=== PATIENT | male | born 1940 | race African-American/Black ===

== ENCOUNTER 2021-08-17 16:19 | Inpatient (IN) | payer MEDICARE ==
[~2021-08-17] VITALS: Ht 172.7 cm; Wt 103.4 kg
[2021-08-17] MEDS ORDERED: ALBUTEROL (0.083%) 2.5MG/3ML NEB HHN STA (16:47)
[2021-08-17] MEDS ORDERED: IPRATROPIUM BROMIDE (0.02%) 0.5MG/2.5ML NEB HHN STA (16:47)
[2021-08-17] MEDS ORDERED: FUROSEMIDE 20MG/2ML VIAL IVP ONE (17:00)
[2021-08-17 17:36] LABS: BASOPHILS % 0.5 % (0.0-2.0); EOSINOPHILS % 0.5 % (0.0-5.0); HEMATOCRIT. 36.1 % (42.0-52.0); HEMOGLOBIN. 12.2 g/dL (14.0-18.0); MEAN CORPUSCULAR HEMOGLOBIN 33.1 pg (28.0-32.0); MEAN CORPUSCULAR VOLUME 98.2 fL (80.0-94.0); MEAN PLATELET VOLUME 9.5 fl (7.4-10.4); PLATELET 280 x1000/uL (130-400); RED BLOOD CELL COUNT 3.68 mill/uL (4.7-6.1); RED CELL DISTRIBUTION WIDTH 14.1 % (11.6-14.6)
[2021-08-17 18:29] LABS: CHLORIDE 104 mEq/L (98-107)
[2021-08-17] MEDS ORDERED: DOCUSATE SODIUM 100MG CAPSULE PO PRN (19:00)
[2021-08-17] MEDS ORDERED: GUAIFENESIN 200MG/10ML SUGAR FREE UDC PO PRN (19:00)
[2021-08-17] MEDS ORDERED: ACETAMINOPHEN 325MG TABLET PO PRN ×2 (19:00)
[2021-08-17] MEDS ORDERED: ONDANSETRON HCL 4MG/2ML INJ IV PRN (19:00)
[2021-08-17] MEDS ORDERED: NA PHOS,M-B/NA PHOS,DI-BA ENEMA 118ML PR PRN (19:00)
[2021-08-17] MEDS ORDERED: IPRATROPIUM/ALBUTEROL 0.5-3(2.5)MG/3ML NEB NEB PRN (19:00)
[2021-08-17] MEDS ORDERED: MAGNESIUM/ALUMINUM HYDROXIDE/SIMETHICONE 30ML UDC PO PRN (19:00)
[2021-08-17] MEDS ORDERED: CLONIDINE 0.1MG TABLET PO PRN (19:00)
[2021-08-17] MEDS ORDERED: TRAMADOL 50MG TABLET PO PRN (19:00)
[2021-08-17] MEDS ORDERED: NALOXONE HCL 0.4MG/ML VIAL IV PRN (19:30)
[2021-08-17] MEDS ORDERED: NITROGLYCERIN 0.4MG TABLET SL SL PRN (19:30)
[2021-08-17 20:20] LABS: FOLIC ACID (FOLATE) SERUM 4.7 ng/mL (>5.38)
[2021-08-17] MEDS: ENOXAPARIN 30MG/0.3ML SYR SUBCUT SCH (20:36)
[2021-08-17] MEDS: ASCORBIC ACID 500 MG TABLET PO SCH (20:36)
[2021-08-17] MEDS: FUROSEMIDE 40MG/4ML VIAL IVP SCH (20:36)
[2021-08-17] MEDS: SPIRONOLACTONE 25MG TABLET PO SCH (20:36)
[2021-08-17] MEDS: FAMOTIDINE 20MG TABLET PO SCH (20:36)
[2021-08-17] MEDS ORDERED: LOSA100T32 PO (22:43)
[2021-08-17] MEDS ORDERED: AMLO10TA80 PO (22:43)
[2021-08-18] VITALS (7 sets, daily range): BP systolic 125–150; BP diastolic 78–98
[2021-08-18] MEDS: CARVEDILOL 3.125 MG TABLET PO SCH ×2 (05:53→18:19)
[2021-08-18 07:02] LABS: CHLORIDE 104 mEq/L (98-107)
[2021-08-18 07:03] LABS: BASOPHILS % 0.5 % (0.0-2.0); HEMOGLOBIN. 11.9 g/dL (14.0-18.0); LYMPHOCYTES % 15.5 % (20.0-50.0); MEAN CORPUSCULAR HEMOGLOBIN 32.7 pg (28.0-32.0); MEAN CORPUSCULAR VOLUME 99.4 fL (80.0-94.0); MEAN PLATELET VOLUME 9.6 fl (7.4-10.4); MONOCYTES % 8.5 % (2.0-8.0); NEUTROPHILS % 74.5 % (40.0-76.0); PLATELET 297 x1000/uL (130-400); RED BLOOD CELL COUNT 3.62 mill/uL (4.7-6.1); RED CELL DISTRIBUTION WIDTH 14.2 % (11.6-14.6)
[2021-08-18 07:20] LABS: CREATINE KINASE 116 IU/L (39-308)
[2021-08-18 07:25] LABS: PHOSPHORUS 3.9 mg/dL (2.5-4.9)
[2021-08-18] MEDS: ASCORBIC ACID 500 MG TABLET PO SCH ×3 (09:59→21:12)
[2021-08-18] MEDS: CHOLECALCIFEROL (D3) 1000 UNIT TABLET PO SCH (09:59)
[2021-08-18] MEDS: FAMOTIDINE 20MG TABLET PO SCH ×3 (09:59→21:11)
[2021-08-18] MEDS: SPIRONOLACTONE 25MG TABLET PO SCH ×3 (09:59→21:11)
[2021-08-18] MEDS: ASPIRIN 325MG EC TABLET PO SCH (09:59)
[2021-08-18] MEDS: ZINC SULFATE 220 MG ( 50 ) CAPSULE PO SCH (09:59)
[2021-08-18] MEDS: FUROSEMIDE 40MG/4ML VIAL IVP SCH ×2 (10:01→20:44)
[2021-08-18] MEDS: ENOXAPARIN 30MG/0.3ML SYR SUBCUT SCH ×2 (10:01→20:53)
[2021-08-19] VITALS: BP 159/99
[2021-08-19] MEDS: ZOLPIDEM TARTRATE 5MG TABLET PO PRN (01:57)
[2021-08-19 04:00] VITALS: BP 125/83
[2021-08-19] MEDS ORDERED: HALOPERIDOL LACTATE 5MG/ML VIAL IM SCH (06:00)
[2021-08-19] MEDS: CARVEDILOL 3.125 MG TABLET PO SCH ×2 (06:00→17:28)
[2021-08-19 08:00] VITALS: BP 173/84
[2021-08-19] MEDS: ASPIRIN 325MG EC TABLET PO SCH (09:48)
[2021-08-19] MEDS: FUROSEMIDE 40MG/4ML VIAL IVP SCH ×2 (09:48→22:37)
[2021-08-19] MEDS: ASCORBIC ACID 500 MG TABLET PO SCH ×2 (09:48→22:38)
[2021-08-19] MEDS: ENOXAPARIN 30MG/0.3ML SYR SUBCUT SCH ×2 (09:48→22:38)
[2021-08-19] MEDS: SPIRONOLACTONE 25MG TABLET PO SCH ×2 (09:49→22:37)
[2021-08-19] MEDS: ZINC SULFATE 220 MG ( 50 ) CAPSULE PO SCH (09:49)
[2021-08-19] MEDS: FAMOTIDINE 20MG TABLET PO SCH ×2 (09:49→22:37)
[2021-08-19] MEDS: CHOLECALCIFEROL (D3) 1000 UNIT TABLET PO SCH (09:49)
[2021-08-19 12:00] VITALS: BP 154/88
[2021-08-19 16:00] VITALS: BP 129/67
[2021-08-19 20:00] VITALS: BP 141/66
[2021-08-20] VITALS: BP 133/47
[2021-08-20 04:00] VITALS: BP 158/78
[2021-08-20] MEDS: CARVEDILOL 3.125 MG TABLET PO SCH ×2 (06:40→18:22)
[2021-08-20 08:00] VITALS: BP 136/62
[2021-08-20] MEDS: CHOLECALCIFEROL (D3) 1000 UNIT TABLET PO SCH (09:13)
[2021-08-20] MEDS: ASCORBIC ACID 500 MG TABLET PO SCH ×2 (09:14→21:39)
[2021-08-20] MEDS: ASPIRIN 325MG EC TABLET PO SCH (09:14)
[2021-08-20] MEDS: FAMOTIDINE 20MG TABLET PO SCH ×2 (09:14→21:39)
[2021-08-20] MEDS: SPIRONOLACTONE 25MG TABLET PO SCH ×2 (09:15→21:39)
[2021-08-20] MEDS: ENOXAPARIN 30MG/0.3ML SYR SUBCUT SCH ×2 (09:15→21:40)
[2021-08-20] MEDS: ZINC SULFATE 220 MG ( 50 ) CAPSULE PO SCH (09:17)
[2021-08-20 09:34] LABS: CLARITY URINE CLEAR (CLEAR); COLOR URINE YELLOW (YELLOW); KETONES URINE NEGATIVE (NEGATIVE); LEUKOCYTE ESTERASE URINE 1+ (NEGATIVE); NITRITE URINE POSITIVE (NEGATIVE); OCCULT BLOOD URINE TRACE (NEGATIVE); PH URINE 5.5 (4.5-8.0); PROTEIN URINE NEGATIVE (NEGATIVE)
[2021-08-20 12:00] VITALS: BP 140/68
[2021-08-20 16:00] VITALS: BP 144/82
[2021-08-20] MEDS: FUROSEMIDE 40MG/4ML VIAL IVP SCH ×2 (18:22→21:39)
[2021-08-20 20:00] VITALS: BP 141/94
[2021-08-21] VITALS: BP 148/79
[2021-08-21] MEDS: ZOLPIDEM TARTRATE 5MG TABLET PO PRN (02:23)
[2021-08-21 04:00] VITALS: BP 102/68
[2021-08-21] MEDS: CARVEDILOL 3.125 MG TABLET PO SCH ×2 (05:16→18:08)
[2021-08-21 08:00] VITALS: BP 153/76
[2021-08-21] MEDS: ENOXAPARIN 30MG/0.3ML SYR SUBCUT SCH ×2 (08:47→20:53)
[2021-08-21] MEDS: CHOLECALCIFEROL (D3) 1000 UNIT TABLET PO SCH (08:48)
[2021-08-21] MEDS: ASPIRIN 325MG EC TABLET PO SCH (08:48)
[2021-08-21] MEDS: FAMOTIDINE 20MG TABLET PO SCH ×2 (08:48→20:54)
[2021-08-21] MEDS: FUROSEMIDE 40MG/4ML VIAL IVP SCH (08:48)
[2021-08-21] MEDS: ASCORBIC ACID 500 MG TABLET PO SCH ×2 (08:48→20:54)
[2021-08-21] MEDS: SPIRONOLACTONE 25MG TABLET PO SCH ×2 (08:48→20:54)
[2021-08-21] MEDS: ZINC SULFATE 220 MG ( 50 ) CAPSULE PO SCH (08:49)
[2021-08-21 12:00] VITALS: BP 134/93
[2021-08-21] MEDS: MEROPENEM 1,000 MG in SODIUM CHLORIDE 0.9% 100 ML IV SCH (15:17)
[2021-08-21 16:00] VITALS: BP 127/69
[2021-08-21 20:00] VITALS: BP 126/83
[2021-08-22] VITALS: BP 138/68
[2021-08-22] MEDS: MEROPENEM 1,000 MG in SODIUM CHLORIDE 0.9% 100 ML IV SCH ×3 (02:09→17:17)
[2021-08-22] MEDS: FUROSEMIDE 40MG/4ML VIAL IVP SCH ×2 (02:09→08:58)
[2021-08-22 04:00] VITALS: BP 156/60
[2021-08-22] MEDS: CARVEDILOL 3.125 MG TABLET PO SCH ×2 (05:29→17:17)
[2021-08-22 08:00] VITALS: BP 141/71
[2021-08-22] MEDS: SPIRONOLACTONE 25MG TABLET PO SCH (08:58)
[2021-08-22] MEDS: CHOLECALCIFEROL (D3) 1000 UNIT TABLET PO SCH (08:58)
[2021-08-22] MEDS: ASCORBIC ACID 500 MG TABLET PO SCH (08:58)
[2021-08-22] MEDS: FAMOTIDINE 20MG TABLET PO SCH (08:59)
[2021-08-22] MEDS: ASPIRIN 325MG EC TABLET PO SCH (08:59)
[2021-08-22] MEDS: ZINC SULFATE 220 MG ( 50 ) CAPSULE PO SCH (08:59)
[2021-08-22] MEDS: ENOXAPARIN 30MG/0.3ML SYR SUBCUT SCH (08:59)
[2021-08-22] MEDS ORDERED: FOLIC ACID 1MG TABLET PO SCH (09:00)
[2021-08-22 12:00] VITALS: BP 139/72
[2021-08-22] MEDS ORDERED: CYANOCOBALAMIN 1000MCG/ML VIAL IM SCH (12:00)
[2021-08-22 16:00] VITALS: BP 122/70
[2021-08-22 16:40] VITALS: BP 137/72
== END 2021-08-22 18:50 | DRG 291 ==
LOC: ER 16:19 → EDBEDREQ 18:46 → EDBEDREQTM 18:46 → SUPCPDRO 18:54 → ENRESERV 21:26 → 7EST 22:16
PROVIDERS: ADMIT Internal Medicine; ATTEND Internal Medicine
DX: I11.0 Hypertensive heart disease with heart failure (principal); J96.01 Acute respiratory failure with hypoxia; I50.43 Acute on chronic combined systolic (congestive) and diastolic (congestive) heart failure; G92.8 Other toxic encephalopathy; E44.0 Moderate protein-calorie malnutrition; N39.0 Urinary tract infection, site not specified; I42.9 Cardiomyopathy, unspecified; D63.8 Anemia in other chronic diseases classified elsewhere; E11.9 Type 2 diabetes mellitus without complications; E66.9 Obesity, unspecified; R74.01 Elevation of levels of liver transaminase levels; D50.9 Iron deficiency anemia, unspecified; E53.8 Deficiency of other specified B group vitamins; R53.81 Other malaise; R26.9 Unspecified abnormalities of gait and mobility; Z79.899 Other long term (current) drug therapy; Z82.49 Family history of ischemic heart disease and other diseases of the circulatory system; Z87.891 Personal history of nicotine dependence; Z71.3 Dietary counseling and surveillance; Z68.34 Body mass index [BMI] 34.0-34.9, adult
CPT/HCPCS: 36415; 71045; 80053; 80061; 81003; 82550; 82553; 82607; 82728; 82746; 83036; 83540; 83550; 83615; 83735; 83880; 84100; 84145; 84484; 85025; 85379; 87077; 87186; 93005; 93306; 93970; 94640; 97110; 97116; 97162; 97166; 97530; 97535; 99291; C1893; J1650; J1940; J2185; J3420; J7040; J7050; A4315

== ENCOUNTER 2021-08-22 19:12 | Inpatient (IN) | payer MEDICARE ==
[~2021-08-22] VITALS: Ht 172.7 cm; Wt 103.4 kg
[2021-08-22 19:00] VITALS: BP 114/47
[~2021-08-22 19:12] MED LIST: AMLO10TA80 PO; LOSA100T32 PO
[2021-08-22 20:00] VITALS: BP 114/47
[2021-08-22] MEDS ORDERED: CLONIDINE 0.1MG TABLET PO PRN (20:30)
[2021-08-22] MEDS ORDERED: NALOXONE HCL 0.4 MG/ML 1ML VIAL IV PRN (20:30)
[2021-08-22] MEDS ORDERED: GUAIFENESIN 200MG/10ML SUGAR FREE UDC PO PRN (20:30)
[2021-08-22] MEDS ORDERED: IPRATROPIUM/ALBUTEROL 0.5-3(2.5)MG/3ML NEB HHN PRN (20:30)
[2021-08-22] MEDS ORDERED: DOCUSATE SODIUM SUGAR FREE 100MG/10ML UDC NG PRN (20:30)
[2021-08-22] MEDS ORDERED: ACETAMINOPHEN 325MG TABLET PO PRN ×2 (20:30)
[2021-08-22] MEDS ORDERED: MAGNESIUM/ALUMINUM HYDROXIDE/SIMETHICONE 30ML UDC PO PRN (20:45)
[2021-08-22] MEDS ORDERED: TRAMADOL 50MG TABLET PO PRN (20:45)
[2021-08-22] MEDS ORDERED: NITROGLYCERIN 0.4MG TABLET SL SL PRN (20:45)
[2021-08-22] MEDS ORDERED: NA PHOS,M-B/NA PHOS,DI-BA ENEMA 118ML PR PRN (20:45)
[2021-08-22] MEDS ORDERED: ZOLPIDEM TARTRATE 5MG TABLET PO PRN (21:00)
[2021-08-22] MEDS: MEROPENEM 1,000 MG in SODIUM CHLORIDE 0.9% 100 ML IV SCH (22:35)
[2021-08-22] MEDS: FAMOTIDINE 20MG TABLET PO SCH (22:36)
[2021-08-22] MEDS: SPIRONOLACTONE 25MG TABLET PO SCH (22:37)
[2021-08-22] MEDS: FUROSEMIDE 40MG TABLET PO SCH (22:37)
[2021-08-22] MEDS: CARVEDILOL 3.125 MG TABLET PO SCH (22:38)
[2021-08-22] MEDS: ASCORBIC ACID 500 MG TABLET PO SCH (22:38)
[2021-08-22] MEDS: ENOXAPARIN 30MG/0.3ML SYR SUBCUT SCH (22:43)
[2021-08-23] MEDS: MEROPENEM 1,000 MG in SODIUM CHLORIDE 0.9% 100 ML IV SCH (06:00)
[2021-08-23] MEDS: FUROSEMIDE 40MG TABLET PO SCH ×2 (07:05→18:11)
[2021-08-23 08:00] VITALS: BP 150/90
[2021-08-23] MEDS: ASCORBIC ACID 500 MG TABLET PO SCH ×2 (09:52→21:07)
[2021-08-23] MEDS: FOLIC ACID 1MG TABLET PO SCH (09:53)
[2021-08-23] MEDS: CARVEDILOL 3.125 MG TABLET PO SCH ×2 (09:53→21:07)
[2021-08-23] MEDS: SPIRONOLACTONE 25MG TABLET PO SCH ×2 (09:53→21:08)
[2021-08-23] MEDS: CYANOCOBALAMIN 1000MCG/ML VIAL IM SCH (09:53)
[2021-08-23] MEDS: ZINC SULFATE 220 MG ( 50 ) CAPSULE PO SCH (09:54)
[2021-08-23] MEDS: CHOLECALCIFEROL (D3) 1000 UNIT TABLET PO SCH (09:54)
[2021-08-23] MEDS: FAMOTIDINE 20MG TABLET PO SCH ×2 (09:54→21:07)
[2021-08-23] MEDS: ENOXAPARIN 30MG/0.3ML SYR SUBCUT SCH ×2 (09:55→21:06)
[2021-08-23] MEDS: ASPIRIN 325MG EC TABLET PO SCH (09:56)
[2021-08-23 10:38] LABS: BASOPHILS % 0.8 % (0.0-2.0); HEMATOCRIT. 41.3 % (42.0-52.0); HEMOGLOBIN. 13.6 g/dL (14.0-18.0); LYMPHOCYTES % 16.1 % (20.0-50.0); MEAN CORPUSCULAR HEMOGLOBIN 32.6 pg (28.0-32.0); MEAN CORPUSCULAR VOLUME 99.2 fL (80.0-94.0); MONOCYTES % 10.1 % (2.0-8.0); PLATELET 312 x1000/uL (130-400); RED BLOOD CELL COUNT 4.17 mill/uL (4.7-6.1); RED CELL DISTRIBUTION WIDTH 14.7 % (11.6-14.6)
[2021-08-23 10:45] LABS: CHLORIDE 100 mEq/L (98-107)
[2021-08-23] MEDS: LEVOFLOXACIN 500MG TABLET PO SCH (12:32)
[2021-08-23] MEDS ORDERED: POTASSIUM CHLORIDE 20MEQ TABLET SR PO NR (12:45)
[2021-08-23 20:00] VITALS: BP 137/80
[2021-08-24 06:47] LABS: BASOPHILS % 0.7 % (0.0-2.0); EOSINOPHILS % 2.1 % (0.0-5.0); HEMATOCRIT. 37.4 % (42.0-52.0); HEMOGLOBIN. 12.4 g/dL (14.0-18.0); LYMPHOCYTES % 23.4 % (20.0-50.0); MEAN CORPUSCULAR HEMOGLOBIN 32.3 pg (28.0-32.0); MEAN CORPUSCULAR VOLUME 97.7 fL (80.0-94.0); MEAN PLATELET VOLUME 8.8 fl (7.4-10.4); MONOCYTES % 11.6 % (2.0-8.0); NEUTROPHILS % 62.2 % (40.0-76.0); PLATELET 292 x1000/uL (130-400); RED BLOOD CELL COUNT 3.83 mill/uL (4.7-6.1); RED CELL DISTRIBUTION WIDTH 14.3 % (11.6-14.6)
[2021-08-24] MEDS: FUROSEMIDE 40MG TABLET PO SCH ×2 (07:36→17:04)
[2021-08-24 07:42] VITALS: BP_SYST 118; BP_SYST 149; BP_DIAS 54; BP_DIAS 76
[2021-08-24 07:44] VITALS: BP 130/66
[2021-08-24 07:48] LABS: CHLORIDE 100 mEq/L (98-107)
[2021-08-24 07:58] VITALS: BP 118/59
[2021-08-24 08:00] LABS: TOTAL IRON BINDING CAPACITY 207 ug/dL (250-450)
[2021-08-24] MEDS: CYANOCOBALAMIN 1000MCG/ML VIAL IM SCH (08:20)
[2021-08-24] MEDS: ASPIRIN 325MG EC TABLET PO SCH (08:20)
[2021-08-24] MEDS: FAMOTIDINE 20MG TABLET PO SCH ×2 (08:21→22:45)
[2021-08-24] MEDS: DOCUSATE SODIUM 100MG CAPSULE PO PRN (08:21)
[2021-08-24] MEDS: CARVEDILOL 3.125 MG TABLET PO SCH ×2 (08:21→21:00)
[2021-08-24] MEDS: CHOLECALCIFEROL (D3) 1000 UNIT TABLET PO SCH (08:21)
[2021-08-24] MEDS: ZINC SULFATE 220 MG ( 50 ) CAPSULE PO SCH (08:22)
[2021-08-24] MEDS: ASCORBIC ACID 500 MG TABLET PO SCH ×2 (08:22→22:45)
[2021-08-24] MEDS: FOLIC ACID 1MG TABLET PO SCH (08:22)
[2021-08-24] MEDS: SPIRONOLACTONE 25MG TABLET PO SCH ×2 (08:22→22:49)
[2021-08-24] MEDS: ENOXAPARIN 30MG/0.3ML SYR SUBCUT SCH ×2 (08:23→22:49)
[2021-08-24 08:28] LABS: VITAMIN B12 SERUM >2000 pg/mL pg/mL (211-911)
[2021-08-24] MEDS: LEVOFLOXACIN 500MG TABLET PO SCH (10:47)
[2021-08-24 11:29] LABS: FERRITIN 470 ng/mL (22-322)
[2021-08-24 11:30] LABS: PROSTRATE SPECIFIC AG TOTAL 0.34 ng/mL (0.0-4.0)
[2021-08-24] MEDS: LACTULOSE 20G/30ML UDC PO SCH ×2 (13:55→17:04)
[2021-08-24] MEDS ORDERED: POTASSIUM CHLORIDE 20MEQ TABLET SR PO NR (15:00)
[2021-08-24 20:00] VITALS: BP 116/54
[2021-08-25] MEDS: FUROSEMIDE 40MG TABLET PO SCH ×2 (06:23→16:53)
[2021-08-25 08:00] VITALS: BP 122/54
[2021-08-25] MEDS: ZINC SULFATE 220 MG ( 50 ) CAPSULE PO SCH (09:09)
[2021-08-25] MEDS: CARVEDILOL 3.125 MG TABLET PO SCH ×2 (09:09→20:41)
[2021-08-25] MEDS: CYANOCOBALAMIN 1000MCG/ML VIAL IM SCH (09:09)
[2021-08-25] MEDS: ENOXAPARIN 30MG/0.3ML SYR SUBCUT SCH ×2 (09:10→20:41)
[2021-08-25] MEDS: SPIRONOLACTONE 25MG TABLET PO SCH ×2 (09:10→20:41)
[2021-08-25] MEDS: ASPIRIN 325MG EC TABLET PO SCH (09:10)
[2021-08-25] MEDS: CHOLECALCIFEROL (D3) 1000 UNIT TABLET PO SCH (09:10)
[2021-08-25] MEDS: FOLIC ACID 1MG TABLET PO SCH (09:10)
[2021-08-25] MEDS: FAMOTIDINE 20MG TABLET PO SCH ×2 (09:10→20:40)
[2021-08-25] MEDS: ASCORBIC ACID 500 MG TABLET PO SCH ×2 (09:10→20:41)
[2021-08-25] MEDS: LEVOFLOXACIN 500MG TABLET PO SCH (10:23)
[2021-08-25 20:00] VITALS: BP 113/58
[2021-08-26] MEDS: FUROSEMIDE 40MG TABLET PO SCH ×2 (06:20→17:06)
[2021-08-26 06:39] LABS: BASOPHILS % 0.6 % (0.0-2.0); EOSINOPHILS % 2.3 % (0.0-5.0); HEMATOCRIT. 39.8 % (42.0-52.0); HEMOGLOBIN. 13.2 g/dL (14.0-18.0); LYMPHOCYTES % 25.5 % (20.0-50.0); MEAN CORPUSCULAR HEMOGLOBIN 32.5 pg (28.0-32.0); MEAN CORPUSCULAR VOLUME 98.3 fL (80.0-94.0); MEAN PLATELET VOLUME 8.6 fl (7.4-10.4); NEUTROPHILS % 61.6 % (40.0-76.0); PLATELET 270 x1000/uL (130-400); RED BLOOD CELL COUNT 4.05 mill/uL (4.7-6.1); RED CELL DISTRIBUTION WIDTH 14.7 % (11.6-14.6)
[2021-08-26 06:53] LABS: CHLORIDE 100 mEq/L (98-107)
[2021-08-26 08:05] VITALS: BP 126/68
[2021-08-26] MEDS: CYANOCOBALAMIN 1000MCG/ML VIAL IM SCH (09:05)
[2021-08-26] MEDS: ENOXAPARIN 30MG/0.3ML SYR SUBCUT SCH ×2 (09:05→21:42)
[2021-08-26] MEDS: CHOLECALCIFEROL (D3) 1000 UNIT TABLET PO SCH (09:06)
[2021-08-26] MEDS: FAMOTIDINE 20MG TABLET PO SCH ×2 (09:06→21:42)
[2021-08-26] MEDS: CARVEDILOL 3.125 MG TABLET PO SCH ×2 (09:06→21:00)
[2021-08-26] MEDS: ASPIRIN 325MG EC TABLET PO SCH (09:06)
[2021-08-26] MEDS: ZINC SULFATE 220 MG ( 50 ) CAPSULE PO SCH (09:06)
[2021-08-26] MEDS: SPIRONOLACTONE 25MG TABLET PO SCH ×2 (09:06→21:42)
[2021-08-26] MEDS: ASCORBIC ACID 500 MG TABLET PO SCH ×2 (09:06→21:42)
[2021-08-26] MEDS: FOLIC ACID 1MG TABLET PO SCH (09:06)
[2021-08-26] MEDS: LEVOFLOXACIN 500MG TABLET PO SCH (11:52)
[2021-08-26 20:00] VITALS: BP 133/88
[2021-08-27] MEDS: FUROSEMIDE 40MG TABLET PO SCH ×2 (06:30→17:15)
[2021-08-27 09:24] VITALS: BP 125/66
[2021-08-27] MEDS: FOLIC ACID 1MG TABLET PO SCH (09:34)
[2021-08-27] MEDS: SPIRONOLACTONE 25MG TABLET PO SCH ×2 (09:34→20:27)
[2021-08-27] MEDS: CARVEDILOL 3.125 MG TABLET PO SCH ×2 (09:34→20:27)
[2021-08-27] MEDS: FAMOTIDINE 20MG TABLET PO SCH ×2 (09:34→20:28)
[2021-08-27] MEDS: CYANOCOBALAMIN 1000MCG/ML VIAL IM SCH (09:34)
[2021-08-27] MEDS: CHOLECALCIFEROL (D3) 1000 UNIT TABLET PO SCH (09:34)
[2021-08-27] MEDS: ZINC SULFATE 220 MG ( 50 ) CAPSULE PO SCH (09:34)
[2021-08-27] MEDS: ASPIRIN 325MG EC TABLET PO SCH (09:34)
[2021-08-27] MEDS: ENOXAPARIN 30MG/0.3ML SYR SUBCUT SCH ×2 (09:35→20:28)
[2021-08-27] MEDS: LEVOFLOXACIN 500MG TABLET PO SCH (11:55)
[2021-08-27] MEDS: ASCORBIC ACID 500 MG TABLET PO SCH ×2 (11:55→20:27)
[2021-08-27 16:51] VITALS: BP 98/52
[2021-08-27 20:00] VITALS: BP 102/41
[2021-08-28] MEDS: FUROSEMIDE 40MG TABLET PO SCH ×2 (06:38→17:32)
[2021-08-28 07:55] VITALS: BP 125/71
[2021-08-28] MEDS: ENOXAPARIN 30MG/0.3ML SYR SUBCUT SCH ×2 (09:21→20:19)
[2021-08-28] MEDS: CYANOCOBALAMIN 1000MCG/ML VIAL IM SCH (09:22)
[2021-08-28] MEDS: ASCORBIC ACID 500 MG TABLET PO SCH ×2 (09:22→20:19)
[2021-08-28] MEDS: FAMOTIDINE 20MG TABLET PO SCH ×2 (09:22→20:19)
[2021-08-28] MEDS: ZINC SULFATE 220 MG ( 50 ) CAPSULE PO SCH (09:22)
[2021-08-28] MEDS: CARVEDILOL 3.125 MG TABLET PO SCH ×2 (09:22→20:19)
[2021-08-28] MEDS: FOLIC ACID 1MG TABLET PO SCH (09:22)
[2021-08-28] MEDS: SPIRONOLACTONE 25MG TABLET PO SCH ×2 (09:22→20:18)
[2021-08-28] MEDS: ASPIRIN 325MG EC TABLET PO SCH (09:23)
[2021-08-28] MEDS: CHOLECALCIFEROL (D3) 1000 UNIT TABLET PO SCH (09:23)
[2021-08-28] MEDS: LEVOFLOXACIN 500MG TABLET PO SCH (10:18)
[2021-08-28 20:00] VITALS: BP 134/79
[2021-08-29] MEDS: FUROSEMIDE 40MG TABLET PO SCH ×2 (06:15→17:45)
[2021-08-29 08:21] VITALS: BP 101/49
[2021-08-29] MEDS: CARVEDILOL 3.125 MG TABLET PO SCH ×2 (09:00→20:56)
[2021-08-29] MEDS: ASCORBIC ACID 500 MG TABLET PO SCH ×2 (09:25→20:56)
[2021-08-29] MEDS: FOLIC ACID 1MG TABLET PO SCH (09:25)
[2021-08-29] MEDS: ENOXAPARIN 30MG/0.3ML SYR SUBCUT SCH ×2 (09:25→20:56)
[2021-08-29] MEDS: ASPIRIN 325MG EC TABLET PO SCH (09:26)
[2021-08-29] MEDS: SPIRONOLACTONE 25MG TABLET PO SCH ×2 (09:26→20:55)
[2021-08-29] MEDS: FAMOTIDINE 20MG TABLET PO SCH ×2 (09:27→20:56)
[2021-08-29] MEDS: ZINC SULFATE 220 MG ( 50 ) CAPSULE PO SCH (09:27)
[2021-08-29] MEDS: CHOLECALCIFEROL (D3) 1000 UNIT TABLET PO SCH (09:27)
[2021-08-29] MEDS: DOCUSATE SODIUM 100MG CAPSULE PO PRN (17:45)
[2021-08-29 20:00] VITALS: BP 122/67
[2021-08-30 04:06] LABS: 25-HYDROXY VITAMIN D3 7.8 ng/mL (.)
[2021-08-30 06:36] LABS: BASOPHILS % 0.5 % (0.0-2.0); LYMPHOCYTES % 21.8 % (20.0-50.0); MEAN CORPUSCULAR HEMOGLOBIN 32.5 pg (28.0-32.0); MEAN CORPUSCULAR VOLUME 97.6 fL (80.0-94.0); MEAN PLATELET VOLUME 9.4 fl (7.4-10.4); NEUTROPHILS % 65.7 % (40.0-76.0); PLATELET 226 x1000/uL (130-400); RED BLOOD CELL COUNT 3.99 mill/uL (4.7-6.1); RED CELL DISTRIBUTION WIDTH 14.4 % (11.6-14.6)
[2021-08-30] MEDS: FUROSEMIDE 40MG TABLET PO SCH ×2 (06:41→18:02)
[2021-08-30 07:10] LABS: CHLORIDE 104 mEq/L (98-107)
[2021-08-30 08:00] VITALS: BP 107/67
[2021-08-30] MEDS: CARVEDILOL 3.125 MG TABLET PO SCH ×2 (09:00→21:00)
[2021-08-30] MEDS: ASCORBIC ACID 500 MG TABLET PO SCH ×2 (09:44→21:48)
[2021-08-30] MEDS: CHOLECALCIFEROL (D3) 1000 UNIT TABLET PO SCH (09:44)
[2021-08-30] MEDS: FAMOTIDINE 20MG TABLET PO SCH ×2 (09:44→21:49)
[2021-08-30] MEDS: FOLIC ACID 1MG TABLET PO SCH (09:44)
[2021-08-30] MEDS: ZINC SULFATE 220 MG ( 50 ) CAPSULE PO SCH (09:44)
[2021-08-30] MEDS: SPIRONOLACTONE 25MG TABLET PO SCH ×2 (09:44→21:51)
[2021-08-30] MEDS: ASPIRIN 325MG EC TABLET PO SCH (09:44)
[2021-08-30] MEDS: ENOXAPARIN 30MG/0.3ML SYR SUBCUT SCH ×2 (09:45→21:48)
[2021-08-30] MEDS ORDERED: ERGOCALCIFEROL 50000UNITS CAPSULE PO SCH (11:00)
[2021-08-30 20:00] VITALS: BP 116/49
[2021-08-31] MEDS: FUROSEMIDE 40MG TABLET PO SCH ×2 (06:23→17:56)
[2021-08-31 08:00] VITALS: BP 126/46
[2021-08-31] MEDS: ASPIRIN 325MG EC TABLET PO SCH (09:09)
[2021-08-31] MEDS: FAMOTIDINE 20MG TABLET PO SCH ×2 (09:10→20:24)
[2021-08-31] MEDS: ASCORBIC ACID 500 MG TABLET PO SCH ×2 (09:10→20:24)
[2021-08-31] MEDS: ZINC SULFATE 220 MG ( 50 ) CAPSULE PO SCH (09:10)
[2021-08-31] MEDS: SPIRONOLACTONE 25MG TABLET PO SCH ×2 (09:10→20:24)
[2021-08-31] MEDS: FOLIC ACID 1MG TABLET PO SCH (09:10)
[2021-08-31] MEDS: CARVEDILOL 3.125 MG TABLET PO SCH ×2 (09:10→20:24)
[2021-08-31] MEDS: CHOLECALCIFEROL (D3) 1000 UNIT TABLET PO SCH (09:10)
[2021-08-31] MEDS: ENOXAPARIN 30MG/0.3ML SYR SUBCUT SCH ×2 (09:11→20:25)
[2021-08-31] MEDS: POLYETHYLENE GLYCOL 3350 (17GM) 1 DOSE PACK PO SCH (17:57)
[2021-08-31 20:00] VITALS: BP 119/64
[2021-09-01] MEDS: FUROSEMIDE 40MG TABLET PO SCH (06:39)
[2021-09-01 08:00] VITALS: BP 106/61
[2021-09-01] MEDS: CARVEDILOL 3.125 MG TABLET PO SCH (08:07)
[2021-09-01] MEDS: ENOXAPARIN 30MG/0.3ML SYR SUBCUT SCH (09:19)
[2021-09-01] MEDS: CHOLECALCIFEROL (D3) 1000 UNIT TABLET PO SCH (09:19)
[2021-09-01] MEDS: POLYETHYLENE GLYCOL 3350 (17GM) 1 DOSE PACK PO SCH (09:19)
[2021-09-01] MEDS: ZINC SULFATE 220 MG ( 50 ) CAPSULE PO SCH (09:19)
[2021-09-01] MEDS: ASPIRIN 325MG EC TABLET PO SCH (09:20)
[2021-09-01] MEDS: FAMOTIDINE 20MG TABLET PO SCH (09:20)
[2021-09-01] MEDS: ASCORBIC ACID 500 MG TABLET PO SCH (09:20)
[2021-09-01] MEDS: FOLIC ACID 1MG TABLET PO SCH (09:20)
[2021-09-01] MEDS: SPIRONOLACTONE 25MG TABLET PO SCH (09:22)
[2021-09-01] MEDS ORDERED: FOLI-43 MT (12:20)
[2021-09-01] MEDS ORDERED: ASCO500C18 MT (12:21)
[2021-09-01 13:07] VITALS: BP 145/67
== END 2021-09-01 16:20 | disposition home health service (06) | DRG 947 ==
PROVIDERS: ADMIT Physical Medicine & Rehabilitation Spinal Cord Injury Medicine; ATTEND Internal Medicine
DX: R53.81 Other malaise (principal); I50.41 Acute combined systolic (congestive) and diastolic (congestive) heart failure; G93.41 Metabolic encephalopathy; I42.9 Cardiomyopathy, unspecified; N39.0 Urinary tract infection, site not specified; E44.0 Moderate protein-calorie malnutrition; D50.9 Iron deficiency anemia, unspecified; E53.8 Deficiency of other specified B group vitamins; E66.9 Obesity, unspecified; I11.0 Hypertensive heart disease with heart failure; R09.02 Hypoxemia; Z68.35 Body mass index [BMI] 35.0-35.9, adult; Z82.49 Family history of ischemic heart disease and other diseases of the circulatory system; Z87.891 Personal history of nicotine dependence; D52.9 Folate deficiency anemia, unspecified; E55.9 Vitamin D deficiency, unspecified; E87.6 Hypokalemia; F39 Unspecified mood [affective] disorder; I48.91 Unspecified atrial fibrillation; F09 Unspecified mental disorder due to known physiological condition; R26.9 Unspecified abnormalities of gait and mobility
CPT/HCPCS: 36415; 80048; 80053; 82306; 82607; 82728; 82746; 82962; 83540; 83550; 84134; 84153; 84443; 85025; 92523; 93970; 97110; 97112; 97116; 97162; 97166; 97530; 97535; J1650; J2185; J3420; J7040; J7050; G0103

== ENCOUNTER 2022-09-28 20:20 | Inpatient (IN) | payer MEDICARE ==
[~2022-09-28] VITALS: Ht 167.6 cm; Wt 117.6 kg
[~2022-09-28 20:20] MED LIST changes: +LISI-186 PO; -LOSA100T32 PO; +SPIR25TA6 PO
[2022-09-29 01:34] LABS: BASOPHILS % 0.4 % (0.0-2.0); HEMATOCRIT. 38.5 % (42.0-52.0); HEMOGLOBIN. 12.7 g/dL (14.0-18.0); LYMPHOCYTES % 17.1 % (20.0-50.0); MEAN CORPUSCULAR HEMOGLOBIN 31.2 pg (28.0-32.0); MEAN CORPUSCULAR VOLUME 94.3 fL (80.0-94.0); MEAN PLATELET VOLUME 8.4 fl (7.4-10.4); MONOCYTES % 9.3 % (2.0-8.0); NEUTROPHILS % 71.2 % (40.0-76.0); PLATELET 270 x1000/uL (130-400); RED BLOOD CELL COUNT 4.08 mill/uL (4.7-6.1); RED CELL DISTRIBUTION WIDTH 15.5 % (11.6-14.6)
[2022-09-29 01:42] LABS: CHLORIDE 107 mEq/L (98-107)
[2022-09-29 01:49] LABS: PROTHROMBIN TIME 10.7 sec (9.6-11.0)
[2022-09-29 08:00] VITALS: BP 144/75
[2022-09-29] MEDS ORDERED: GUAIFENESIN 200MG/10ML SUGAR FREE UDC PO PRN (10:15)
[2022-09-29] MEDS ORDERED: CLONIDINE 0.1MG TABLET PO PRN (10:15)
[2022-09-29] MEDS ORDERED: DOCUSATE SODIUM 100MG CAPSULE PO PRN (10:15)
[2022-09-29] MEDS ORDERED: IPRATROPIUM/ALBUTEROL 0.5-3(2.5)MG/3ML NEB HHN PRN (10:15)
[2022-09-29] MEDS ORDERED: ACETAMINOPHEN 325MG TABLET PO PRN (10:15)
[2022-09-29] MEDS ORDERED: ONDANSETRON HCL 4MG/2ML INJ IV PRN (10:15)
[2022-09-29 12:00] VITALS: BP 126/57
[2022-09-29 12:19] VITALS: BP 144/75
[2022-09-29] MEDS: ENOXAPARIN 30MG/0.3ML SYR SUBCUT SCH ×2 (13:43→21:23)
[2022-09-29] MEDS: SPIRONOLACTONE 25MG TABLET PO SCH (13:43)
[2022-09-29] MEDS: LISINOPRIL 5MG TABLET PO SCH (15:06)
[2022-09-29 16:00] VITALS: BP 151/61
[2022-09-29 16:32] LABS: BASOPHILS % 0.5 % (0.0-2.0); EOSINOPHILS % 2.7 % (0.0-5.0); HEMATOCRIT. 37.1 % (42.0-52.0); HEMOGLOBIN. 12.4 g/dL (14.0-18.0); MEAN CORPUSCULAR HEMOGLOBIN 31.5 pg (28.0-32.0); MEAN CORPUSCULAR VOLUME 94.1 fL (80.0-94.0); MEAN PLATELET VOLUME 8.4 fl (7.4-10.4); MONOCYTES % 7.8 % (2.0-8.0); PLATELET 245 x1000/uL (130-400); RED BLOOD CELL COUNT 3.95 mill/uL (4.7-6.1); RED CELL DISTRIBUTION WIDTH 15.9 % (11.6-14.6)
[2022-09-29 17:19] LABS: CHLORIDE 108 mEq/L (98-107)
[2022-09-29 17:39] LABS: CREATINE KINASE 276 IU/L (39-308); CREATINE KINASE MB FRACTION 1.7 ng/mL (0.5-3.6); HDL CHOLESTEROL 74 mg/dL (40-59); LDL CHOLESTEROL 102 mg/dL (5-100); T4 FREE 1.02 ng/dL (0.76-1.46)
[2022-09-29] MEDS: CEFTRIAXONE 1,000 MG in DEXTROSE 5% WATER 50 ML IV SCH (18:09)
[2022-09-29] MEDS: AMLODIPINE 10MG TABLET PO SCH (18:09)
[2022-09-29 18:24] LABS: VITAMIN B12 SERUM 348 pg/mL (211-911)
[2022-09-29 20:00] VITALS: BP 142/58
[2022-09-30] VITALS: BP 135/59
[2022-09-30 02:30] LABS: CREATINE KINASE MB FRACTION 1.3 ng/mL (0.5-3.6)
[2022-09-30 04:00] VITALS: BP_SYST 139
[2022-09-30 07:54] VITALS: BP 141/75
[2022-09-30 08:14] LABS: BASOPHILS % 0.3 % (0.0-2.0); EOSINOPHILS % 1.7 % (0.0-5.0); HEMATOCRIT. 36.3 % (42.0-52.0); LYMPHOCYTES % 12.1 % (20.0-50.0); MEAN CORPUSCULAR HEMOGLOBIN 31.1 pg (28.0-32.0); MEAN CORPUSCULAR VOLUME 94.1 fL (80.0-94.0); MEAN PLATELET VOLUME 8.6 fl (7.4-10.4); MONOCYTES % 10.9 % (2.0-8.0); PLATELET 239 x1000/uL (130-400); RED BLOOD CELL COUNT 3.86 mill/uL (4.7-6.1); RED CELL DISTRIBUTION WIDTH 15.9 % (11.6-14.6)
[2022-09-30] MEDS: ENOXAPARIN 30MG/0.3ML SYR SUBCUT SCH ×2 (08:29→20:25)
[2022-09-30] MEDS: LISINOPRIL 5MG TABLET PO SCH (08:29)
[2022-09-30] MEDS: ASPIRIN 81MG EC TABLET PO SCH (08:29)
[2022-09-30] MEDS: AMLODIPINE 10MG TABLET PO SCH (08:29)
[2022-09-30] MEDS: SPIRONOLACTONE 25MG TABLET PO SCH (08:30)
[2022-09-30] MEDS: FUROSEMIDE 40MG/4ML VIAL IVP SCH ×2 (09:00→13:51)
[2022-09-30] MEDS ORDERED: FAMOTIDINE 20MG/2ML VIAL IV SCH (09:00)
[2022-09-30 09:54] LABS: CHLORIDE 106 mEq/L (98-107)
[2022-09-30 12:00] VITALS: BP 133/70
[2022-09-30] MEDS ORDERED: IBUPROFEN 800MG TABLET PO PRN (13:15)
[2022-09-30] MEDS: CYANOCOBALAMIN 1000MCG/ML VIAL IM SCH (13:51)
[2022-09-30 15:56] VITALS: BP 135/69
[2022-09-30] MEDS: CEFTRIAXONE 1,000 MG in DEXTROSE 5% WATER 50 ML IV SCH (16:33)
[2022-09-30 20:00] VITALS: BP 128/66
[2022-10-01] VITALS: BP 140/71
[2022-10-01 04:00] VITALS: BP 146/68
[2022-10-01 08:00] VITALS: BP 139/67
[2022-10-01] MEDS: FUROSEMIDE 40MG/4ML VIAL IVP SCH ×2 (09:33→16:38)
[2022-10-01] MEDS: ENOXAPARIN 30MG/0.3ML SYR SUBCUT SCH ×2 (09:33→20:31)
[2022-10-01] MEDS: ASPIRIN 81MG EC TABLET PO SCH (09:34)
[2022-10-01] MEDS: CARVEDILOL 3.125 MG TABLET PO SCH ×2 (09:34→20:31)
[2022-10-01] MEDS: AMLODIPINE 5MG TABLET PO SCH ×2 (09:34→16:33)
[2022-10-01] MEDS: SPIRONOLACTONE 25MG TABLET PO SCH (09:34)
[2022-10-01] MEDS: CYANOCOBALAMIN 1000MCG/ML VIAL IM SCH (09:34)
[2022-10-01] MEDS: FAMOTIDINE 20MG TABLET PO SCH ×2 (09:34→16:38)
[2022-10-01] MEDS: LISINOPRIL 5MG TABLET PO SCH (09:35)
[2022-10-01 11:45] LABS: BASOPHILS % 0.3 % (0.0-2.0); EOSINOPHILS % 0.9 % (0.0-5.0); HEMATOCRIT. 36.5 % (42.0-52.0); HEMOGLOBIN. 12.2 g/dL (14.0-18.0); LYMPHOCYTES % 8.2 % (20.0-50.0); MEAN CORPUSCULAR HEMOGLOBIN 31.4 pg (28.0-32.0); MEAN CORPUSCULAR VOLUME 93.8 fL (80.0-94.0); MEAN PLATELET VOLUME 8.2 fl (7.4-10.4); MONOCYTES % 11.6 % (2.0-8.0); PLATELET 260 x1000/uL (130-400); RED BLOOD CELL COUNT 3.89 mill/uL (4.7-6.1); RED CELL DISTRIBUTION WIDTH 15.3 % (11.6-14.6)
[2022-10-01 12:00] VITALS: BP 109/60
[2022-10-01 12:43] LABS: CHLORIDE 107 mEq/L (98-107)
[2022-10-01 14:41] LABS: CLARITY URINE CLEAR (CLEAR); COLOR URINE YELLOW (YELLOW); KETONES URINE NEGATIVE (NEGATIVE); LEUKOCYTE ESTERASE URINE 3+ (NEGATIVE); NITRITE URINE NEGATIVE (NEGATIVE); OCCULT BLOOD URINE 2+ (NEGATIVE); PH URINE 5.5 (4.5-8.0); PROTEIN URINE 1+ (NEGATIVE); SPECIFIC GRAVITY URINE 1.014 (1.005-1.030); UROBILINOGEN URINE 0.2 E.U./dL (0.2-1.0)
[2022-10-01] MEDS ORDERED: DEXTROSE 50% WATER 50ML SYRINGE IV PRN (15:45)
[2022-10-01 16:00] VITALS: BP 104/58
[2022-10-01] MEDS: CEFTRIAXONE 1,000 MG in DEXTROSE 5% WATER 50 ML IV SCH (16:38)
[2022-10-01] MEDS: BLOOD SUGAR DIAGNOSTIC STRIP TEST SCH ×2 (17:42→20:32)
[2022-10-01] MEDS: INSULIN LISPRO 100 UNITS/ML SUBCUT SCH ×2 (17:43→20:31)
[2022-10-01 20:00] VITALS: BP 97/51
[2022-10-01] MEDS: ATORVASTATIN CALCIUM 10MG TABLET PO SCH (20:31)
[2022-10-02] VITALS: BP 126/58
[2022-10-02 04:00] VITALS: BP 109/51
[2022-10-02] MEDS: BLOOD SUGAR DIAGNOSTIC STRIP TEST SCH ×4 (05:51→20:58)
[2022-10-02] MEDS: INSULIN LISPRO 100 UNITS/ML SUBCUT SCH ×4 (05:51→20:58)
[2022-10-02 07:44] LABS: BASOPHILS % 0.4 % (0.0-2.0); EOSINOPHILS % 2.8 % (0.0-5.0); HEMATOCRIT. 36.3 % (42.0-52.0); HEMOGLOBIN. 12.2 g/dL (14.0-18.0); LYMPHOCYTES % 18.2 % (20.0-50.0); MEAN CORPUSCULAR HEMOGLOBIN 32.1 pg (28.0-32.0); MEAN CORPUSCULAR VOLUME 95.7 fL (80.0-94.0); MEAN PLATELET VOLUME 8.5 fl (7.4-10.4); MONOCYTES % 10.4 % (2.0-8.0); NEUTROPHILS % 68.2 % (40.0-76.0); PLATELET 247 x1000/uL (130-400); RED BLOOD CELL COUNT 3.79 mill/uL (4.7-6.1); RED CELL DISTRIBUTION WIDTH 15.9 % (11.6-14.6)
[2022-10-02 08:10] VITALS: BP 114/54
[2022-10-02 08:32] LABS: CHLORIDE 106 mEq/L (98-107)
[2022-10-02] MEDS: FUROSEMIDE 40MG/4ML VIAL IVP SCH ×2 (09:45→17:52)
[2022-10-02] MEDS: CYANOCOBALAMIN 1000MCG/ML VIAL IM SCH (09:45)
[2022-10-02] MEDS: ASPIRIN 81MG EC TABLET PO SCH (09:46)
[2022-10-02] MEDS: SPIRONOLACTONE 25MG TABLET PO SCH (09:46)
[2022-10-02] MEDS: LACTULOSE 20G/30ML UDC PO SCH ×2 (09:46→17:52)
[2022-10-02] MEDS: FAMOTIDINE 20MG TABLET PO SCH ×2 (09:46→17:53)
[2022-10-02] MEDS: LISINOPRIL 2.5MG TABLET PO SCH (09:46)
[2022-10-02] MEDS: CARVEDILOL 3.125 MG TABLET PO SCH ×2 (09:46→20:57)
[2022-10-02] MEDS: ENOXAPARIN 30MG/0.3ML SYR SUBCUT SCH ×2 (09:47→20:57)
[2022-10-02] MEDS ORDERED: AMLODIPINE 2.5MG TABLET PO SCH (10:00)
[2022-10-02 12:00] VITALS: BP 119/58
[2022-10-02] MEDS: CEFTRIAXONE 1,000 MG in DEXTROSE 5% WATER 50 ML IV SCH (15:30)
[2022-10-02 16:00] VITALS: BP 120/59
[2022-10-02 20:00] VITALS: BP 125/69
[2022-10-02] MEDS: ATORVASTATIN CALCIUM 10MG TABLET PO SCH (20:57)
[2022-10-03] VITALS: BP 123/72
[2022-10-03 04:00] VITALS: BP 133/69
[2022-10-03] MEDS: INSULIN LISPRO 100 UNITS/ML SUBCUT SCH ×3 (05:50→20:51)
[2022-10-03] MEDS: BLOOD SUGAR DIAGNOSTIC STRIP TEST SCH ×4 (05:50→20:50)
[2022-10-03 06:13] LABS: BASOPHILS % 0.6 % (0.0-2.0); EOSINOPHILS % 3.4 % (0.0-5.0); HEMATOCRIT. 34.5 % (42.0-52.0); HEMOGLOBIN. 11.7 g/dL (14.0-18.0); LYMPHOCYTES % 22.8 % (20.0-50.0); MEAN CORPUSCULAR HEMOGLOBIN 31.5 pg (28.0-32.0); MEAN CORPUSCULAR VOLUME 93.2 fL (80.0-94.0); MEAN PLATELET VOLUME 8.3 fl (7.4-10.4); MONOCYTES % 10.4 % (2.0-8.0); NEUTROPHILS % 62.8 % (40.0-76.0); PLATELET 272 x1000/uL (130-400); RED CELL DISTRIBUTION WIDTH 15.4 % (11.6-14.6)
[2022-10-03 07:44] LABS: CHLORIDE 103 mEq/L (98-107)
[2022-10-03 08:00] VITALS: BP 120/72
[2022-10-03] MEDS ORDERED: POTASSIUM CHLORIDE 20MEQ/PACKET PO NR (08:30)
[2022-10-03] MEDS: ASPIRIN 81MG EC TABLET PO SCH (09:00)
[2022-10-03] MEDS: LACTULOSE 20G/30ML UDC PO SCH ×2 (09:48→17:48)
[2022-10-03] MEDS: ENOXAPARIN 30MG/0.3ML SYR SUBCUT SCH ×2 (09:49→20:50)
[2022-10-03] MEDS: FAMOTIDINE 20MG TABLET PO SCH ×2 (09:56→17:52)
[2022-10-03] MEDS: SPIRONOLACTONE 25MG TABLET PO SCH (09:56)
[2022-10-03] MEDS: LISINOPRIL 2.5MG TABLET PO SCH (09:56)
[2022-10-03] MEDS: FUROSEMIDE 40MG/4ML VIAL IVP SCH ×2 (09:56→17:52)
[2022-10-03] MEDS: CARVEDILOL 3.125 MG TABLET PO SCH ×2 (09:57→20:50)
[2022-10-03 12:00] VITALS: BP 118/79
[2022-10-03 16:00] VITALS: BP 117/60
[2022-10-03] MEDS: CEFTRIAXONE 1,000 MG in DEXTROSE 5% WATER 50 ML IV SCH (17:48)
[2022-10-03 20:00] VITALS: BP 143/68
[2022-10-03] MEDS: ATORVASTATIN CALCIUM 10MG TABLET PO SCH (20:50)
[2022-10-04] VITALS: BP 122/59
[2022-10-04 04:00] VITALS: BP 133/74
[2022-10-04] MEDS: BLOOD SUGAR DIAGNOSTIC STRIP TEST SCH ×4 (06:10→21:48)
[2022-10-04] MEDS: INSULIN LISPRO 100 UNITS/ML SUBCUT SCH ×4 (06:10→21:00)
[2022-10-04 06:16] LABS: HEMATOCRIT 37.5 % (42.0-52.0); HEMOGLOBIN 12.3 g/dL (14.0-18.0); MEAN CORPUSCULAR HEMOGLOBIN 31.1 pg (28.0-32.0); MEAN CORPUSCULAR VOLUME 94.3 fL (80.0-94.0); PLATELET 287 x1000/uL (130-400); RED BLOOD CELL COUNT 3.97 mill/uL (4.7-6.1); RED CELL DISTRIBUTION WIDTH 15.3 % (11.6-14.6)
[2022-10-04 07:58] VITALS: BP 130/82
[2022-10-04 08:59] LABS: CHLORIDE 98 mEq/L (98-107)
[2022-10-04] MEDS: LACTULOSE 20G/30ML UDC PO SCH ×2 (09:00→17:51)
[2022-10-04] MEDS: ASPIRIN 81MG EC TABLET PO SCH (09:00)
[2022-10-04] MEDS: FAMOTIDINE 20MG TABLET PO SCH ×2 (10:13→17:51)
[2022-10-04] MEDS: ENOXAPARIN 30MG/0.3ML SYR SUBCUT SCH ×2 (10:13→21:48)
[2022-10-04] MEDS: FUROSEMIDE 40MG/4ML VIAL IVP SCH ×2 (10:13→17:51)
[2022-10-04] MEDS: CARVEDILOL 3.125 MG TABLET PO SCH ×2 (10:14→21:47)
[2022-10-04] MEDS: SPIRONOLACTONE 25MG TABLET PO SCH (10:14)
[2022-10-04] MEDS: LISINOPRIL 2.5MG TABLET PO SCH (10:15)
[2022-10-04 12:00] VITALS: BP 126/85
[2022-10-04] MEDS ORDERED: LISI2.5T47 PO (14:33)
[2022-10-04] MEDS ORDERED: FURO80TA87 PO (14:33)
[2022-10-04] MEDS ORDERED: IBUP-2030 PO (14:33)
[2022-10-04] MEDS ORDERED: ASPI-1406 PO (14:33)
[2022-10-04] MEDS ORDERED: COR3 PO (14:33)
[2022-10-04] MEDS ORDERED: ATOR10TA PO (14:33)
[2022-10-04 16:00] VITALS: BP 127/71
[2022-10-04 20:00] VITALS: BP 120/63
[2022-10-04] MEDS: ATORVASTATIN CALCIUM 10MG TABLET PO SCH (21:47)
[2022-10-05] VITALS (7 sets, daily range): BP systolic 111–152; BP diastolic 56–80
[2022-10-05] MEDS: BLOOD SUGAR DIAGNOSTIC STRIP TEST SCH ×4 (08:05→20:25)
[2022-10-05] MEDS: INSULIN LISPRO 100 UNITS/ML SUBCUT SCH ×4 (08:05→20:25)
[2022-10-05] MEDS: CARVEDILOL 3.125 MG TABLET PO SCH ×2 (08:14→20:24)
[2022-10-05] MEDS: FAMOTIDINE 20MG TABLET PO SCH ×2 (08:14→17:21)
[2022-10-05] MEDS: LACTULOSE 20G/30ML UDC PO SCH ×2 (08:14→17:21)
[2022-10-05] MEDS: SPIRONOLACTONE 25MG TABLET PO SCH (08:14)
[2022-10-05] MEDS: LISINOPRIL 2.5MG TABLET PO SCH (08:15)
[2022-10-05] MEDS: FUROSEMIDE 40MG/4ML VIAL IVP SCH ×2 (08:15→17:21)
[2022-10-05] MEDS: ENOXAPARIN 30MG/0.3ML SYR SUBCUT SCH ×2 (08:16→20:25)
[2022-10-05] MEDS: ASPIRIN 81MG EC TABLET PO SCH (08:19)
[2022-10-05] MEDS ORDERED: CLOP-31 PO (15:38)
[2022-10-05] MEDS ORDERED: ATOR40TA70 PO (15:38)
[2022-10-05] MEDS: CLOPIDOGREL 75MG TABLET PO SCH (15:49)
[2022-10-05] MEDS: ATORVASTATIN CALCIUM 40MG TABLET PO SCH (20:24)
[2022-10-06 04:00] VITALS: BP 133/71
[2022-10-06] MEDS: BLOOD SUGAR DIAGNOSTIC STRIP TEST SCH ×4 (06:19→21:00)
[2022-10-06] MEDS: INSULIN LISPRO 100 UNITS/ML SUBCUT SCH ×4 (06:19→21:00)
[2022-10-06 08:00] VITALS: BP 161/85
[2022-10-06] MEDS: FUROSEMIDE 40MG/4ML VIAL IVP SCH ×2 (09:00→17:39)
[2022-10-06] MEDS: LACTULOSE 20G/30ML UDC PO SCH ×2 (10:13→17:39)
[2022-10-06] MEDS: LISINOPRIL 2.5MG TABLET PO SCH (10:13)
[2022-10-06] MEDS: ENOXAPARIN 30MG/0.3ML SYR SUBCUT SCH ×2 (10:14→22:15)
[2022-10-06] MEDS: CLOPIDOGREL 75MG TABLET PO SCH (10:14)
[2022-10-06] MEDS: FAMOTIDINE 20MG TABLET PO SCH ×2 (10:14→17:40)
[2022-10-06] MEDS: ASPIRIN 81MG EC TABLET PO SCH (10:14)
[2022-10-06] MEDS: SPIRONOLACTONE 25MG TABLET PO SCH (10:14)
[2022-10-06] MEDS: CARVEDILOL 3.125 MG TABLET PO SCH ×2 (10:15→22:14)
[2022-10-06 12:00] VITALS: BP 139/73
[2022-10-06 16:00] VITALS: BP 136/68
[2022-10-06] MEDS ORDERED: ACETAMINOPHEN 325MG TABLET PO PRN (17:00)
[2022-10-06 20:00] VITALS: BP 157/79
[2022-10-06] MEDS: ATORVASTATIN CALCIUM 40MG TABLET PO SCH (22:13)
[2022-10-07] VITALS: BP 150/70
[2022-10-07 04:00] VITALS: BP 128/89
[2022-10-07] MEDS: INSULIN LISPRO 100 UNITS/ML SUBCUT SCH ×4 (06:33→21:00)
[2022-10-07] MEDS: BLOOD SUGAR DIAGNOSTIC STRIP TEST SCH ×4 (06:33→21:03)
[2022-10-07 08:00] VITALS: BP 155/75
[2022-10-07] MEDS: ENOXAPARIN 30MG/0.3ML SYR SUBCUT SCH ×2 (09:00→21:03)
[2022-10-07] MEDS: LACTULOSE 20G/30ML UDC PO SCH ×2 (09:43→17:51)
[2022-10-07] MEDS: FUROSEMIDE 40MG/4ML VIAL IVP SCH (09:44)
[2022-10-07] MEDS: CLOPIDOGREL 75MG TABLET PO SCH (09:44)
[2022-10-07] MEDS: LISINOPRIL 2.5MG TABLET PO SCH (09:44)
[2022-10-07] MEDS: SPIRONOLACTONE 25MG TABLET PO SCH (09:44)
[2022-10-07] MEDS: FAMOTIDINE 20MG TABLET PO SCH ×2 (09:45→17:51)
[2022-10-07] MEDS: FLUOXETINE HCL 10 MG CAPSULE PO SCH (09:45)
[2022-10-07] MEDS: CARVEDILOL 3.125 MG TABLET PO SCH ×2 (09:45→20:57)
[2022-10-07] MEDS: ASPIRIN 81MG EC TABLET PO SCH (09:58)
[2022-10-07 12:00] VITALS: BP 139/63
[2022-10-07 16:00] VITALS: BP 133/94
[2022-10-07] MEDS: FUROSEMIDE 40MG TABLET PO SCH (17:51)
[2022-10-07 20:00] VITALS: BP 156/82
[2022-10-07] MEDS: ATORVASTATIN CALCIUM 40MG TABLET PO SCH (20:56)
[2022-10-08] VITALS: BP 132/51
[2022-10-08 04:00] VITALS: BP 127/56
[2022-10-08] MEDS: BLOOD SUGAR DIAGNOSTIC STRIP TEST SCH ×4 (06:20→21:14)
[2022-10-08] MEDS: INSULIN LISPRO 100 UNITS/ML SUBCUT SCH ×4 (06:20→21:00)
[2022-10-08 08:00] VITALS: BP 143/77
[2022-10-08 08:40] LABS: HEMATOCRIT 36.5 % (42.0-52.0); HEMOGLOBIN 12.4 g/dL (14.0-18.0); MEAN CORPUSCULAR HEMOGLOBIN 31.7 pg (28.0-32.0); MEAN CORPUSCULAR VOLUME 93.6 fL (80.0-94.0); PLATELET 387 x1000/uL (130-400); RED CELL DISTRIBUTION WIDTH 15.1 % (11.6-14.6)
[2022-10-08] MEDS: LACTULOSE 20G/30ML UDC PO SCH ×2 (08:54→17:11)
[2022-10-08] MEDS: FLUOXETINE HCL 10 MG CAPSULE PO SCH (08:55)
[2022-10-08] MEDS: FAMOTIDINE 20MG TABLET PO SCH ×2 (08:55→17:11)
[2022-10-08] MEDS: ASPIRIN 81MG EC TABLET PO SCH (08:55)
[2022-10-08] MEDS: ENOXAPARIN 30MG/0.3ML SYR SUBCUT SCH ×2 (08:55→21:34)
[2022-10-08] MEDS: CARVEDILOL 3.125 MG TABLET PO SCH ×2 (08:55→21:34)
[2022-10-08] MEDS: CLOPIDOGREL 75MG TABLET PO SCH (08:56)
[2022-10-08] MEDS: FUROSEMIDE 40MG TABLET PO SCH ×2 (08:56→17:11)
[2022-10-08] MEDS: LISINOPRIL 2.5MG TABLET PO SCH (08:56)
[2022-10-08] MEDS: SPIRONOLACTONE 25MG TABLET PO SCH (08:56)
[2022-10-08 12:00] VITALS: BP 146/78
[2022-10-08 15:35] LABS: CHLORIDE 97 mEq/L (98-107)
[2022-10-08 16:00] VITALS: BP 155/80
[2022-10-08 20:00] VITALS: BP 141/74
[2022-10-08] MEDS: ATORVASTATIN CALCIUM 40MG TABLET PO SCH (21:34)
[2022-10-09] VITALS: BP 124/66
[2022-10-09 04:00] VITALS: BP 138/73
[2022-10-09] MEDS: BLOOD SUGAR DIAGNOSTIC STRIP TEST SCH ×4 (06:31→21:00)
[2022-10-09] MEDS: INSULIN LISPRO 100 UNITS/ML SUBCUT SCH ×4 (06:31→21:00)
[2022-10-09 08:00] VITALS: BP 144/72
[2022-10-09] MEDS: FUROSEMIDE 40MG TABLET PO SCH ×2 (08:33→16:35)
[2022-10-09] MEDS: FAMOTIDINE 20MG TABLET PO SCH ×2 (08:33→16:35)
[2022-10-09] MEDS: CLOPIDOGREL 75MG TABLET PO SCH (08:34)
[2022-10-09] MEDS: SPIRONOLACTONE 25MG TABLET PO SCH (08:34)
[2022-10-09] MEDS: CARVEDILOL 3.125 MG TABLET PO SCH ×2 (08:34→21:30)
[2022-10-09] MEDS: ASPIRIN 81MG EC TABLET PO SCH (08:34)
[2022-10-09] MEDS: LACTULOSE 20G/30ML UDC PO SCH ×2 (08:35→16:35)
[2022-10-09] MEDS: LISINOPRIL 2.5MG TABLET PO SCH (08:35)
[2022-10-09] MEDS: ENOXAPARIN 30MG/0.3ML SYR SUBCUT SCH ×2 (08:35→21:00)
[2022-10-09] MEDS: FLUOXETINE HCL 10 MG CAPSULE PO SCH (08:35)
[2022-10-09 12:00] VITALS: BP 156/78
[2022-10-09 16:00] VITALS: BP 137/66
[2022-10-09 21:00] VITALS: BP 127/73
[2022-10-09] MEDS: ATORVASTATIN CALCIUM 40MG TABLET PO SCH (21:30)
[2022-10-10] VITALS: BP 133/73
[2022-10-10 04:00] VITALS: BP 133/72
[2022-10-10] MEDS: INSULIN LISPRO 100 UNITS/ML SUBCUT SCH ×4 (06:19→21:00)
[2022-10-10] MEDS: BLOOD SUGAR DIAGNOSTIC STRIP TEST SCH ×4 (06:19→21:02)
[2022-10-10 08:15] VITALS: BP 159/86
[2022-10-10] MEDS: FUROSEMIDE 40MG TABLET PO SCH ×2 (09:21→21:22)
[2022-10-10] MEDS: CARVEDILOL 3.125 MG TABLET PO SCH ×2 (09:21→21:23)
[2022-10-10] MEDS: FAMOTIDINE 20MG TABLET PO SCH ×2 (09:21→21:22)
[2022-10-10] MEDS: CLOPIDOGREL 75MG TABLET PO SCH (09:21)
[2022-10-10] MEDS: LISINOPRIL 2.5MG TABLET PO SCH (09:21)
[2022-10-10] MEDS: SPIRONOLACTONE 25MG TABLET PO SCH (09:22)
[2022-10-10] MEDS: FLUOXETINE HCL 10 MG CAPSULE PO SCH (09:22)
[2022-10-10] MEDS: LACTULOSE 20G/30ML UDC PO SCH ×2 (09:22→21:22)
[2022-10-10] MEDS: ENOXAPARIN 30MG/0.3ML SYR SUBCUT SCH ×2 (09:22→21:22)
[2022-10-10] MEDS: ASPIRIN 81MG EC TABLET PO SCH (09:22)
[2022-10-10 12:00] VITALS: BP 144/85
[2022-10-10 16:00] VITALS: BP 149/85
[2022-10-10] MEDS: ATORVASTATIN CALCIUM 40MG TABLET PO SCH (21:22)
[2022-10-11] VITALS: BP 147/67
[2022-10-11 04:00] VITALS: BP 144/82
[2022-10-11] MEDS: INSULIN LISPRO 100 UNITS/ML SUBCUT SCH ×4 (05:40→21:00)
[2022-10-11] MEDS: BLOOD SUGAR DIAGNOSTIC STRIP TEST SCH ×4 (05:40→21:11)
[2022-10-11 08:25] VITALS: BP 143/80
[2022-10-11] MEDS: FLUOXETINE HCL 10 MG CAPSULE PO SCH (10:14)
[2022-10-11] MEDS: ASPIRIN 81MG EC TABLET PO SCH (10:14)
[2022-10-11] MEDS: SPIRONOLACTONE 25MG TABLET PO SCH (10:14)
[2022-10-11] MEDS: CLOPIDOGREL 75MG TABLET PO SCH (10:14)
[2022-10-11] MEDS: LISINOPRIL 2.5MG TABLET PO SCH (10:14)
[2022-10-11] MEDS: CARVEDILOL 3.125 MG TABLET PO SCH ×2 (10:15→21:10)
[2022-10-11] MEDS: FUROSEMIDE 40MG TABLET PO SCH ×2 (10:15→17:45)
[2022-10-11] MEDS: LACTULOSE 20G/30ML UDC PO SCH ×2 (10:15→16:43)
[2022-10-11] MEDS: FAMOTIDINE 20MG TABLET PO SCH ×2 (10:21→17:45)
[2022-10-11] MEDS: ENOXAPARIN 30MG/0.3ML SYR SUBCUT SCH ×2 (11:46→21:10)
[2022-10-11 11:57] VITALS: BP 146/72
[2022-10-11 16:25] VITALS: BP 136/64
[2022-10-11 20:00] VITALS: BP 128/60
[2022-10-11] MEDS: ATORVASTATIN CALCIUM 40MG TABLET PO SCH (21:10)
[2022-10-12] VITALS: BP 113/55
[2022-10-12 04:00] VITALS: BP 140/59
[2022-10-12] MEDS: INSULIN LISPRO 100 UNITS/ML SUBCUT SCH (05:54)
[2022-10-12] MEDS: BLOOD SUGAR DIAGNOSTIC STRIP TEST SCH (05:54)
[2022-10-12 08:00] VITALS: BP 140/75
[2022-10-12] MEDS: LACTULOSE 20G/30ML UDC PO SCH (08:23)
[2022-10-12] MEDS: ASPIRIN 81MG EC TABLET PO SCH (08:24)
[2022-10-12] MEDS: FUROSEMIDE 40MG TABLET PO SCH (08:25)
[2022-10-12] MEDS: LISINOPRIL 2.5MG TABLET PO SCH (08:25)
[2022-10-12] MEDS: SPIRONOLACTONE 25MG TABLET PO SCH (08:25)
[2022-10-12] MEDS: FLUOXETINE HCL 10 MG CAPSULE PO SCH (08:25)
[2022-10-12] MEDS: FAMOTIDINE 20MG TABLET PO SCH (08:26)
[2022-10-12] MEDS: CARVEDILOL 3.125 MG TABLET PO SCH (08:26)
[2022-10-12] MEDS: CLOPIDOGREL 75MG TABLET PO SCH (08:26)
[2022-10-12] MEDS: ENOXAPARIN 30MG/0.3ML SYR SUBCUT SCH (08:27)
[2022-10-12 12:00] VITALS: BP 135/72
== END 2022-10-12 13:30 | DRG 64 ==
LOC: ER 20:20 → MICUSO 09-29 04:19 → 6WST 09-29 08:02 → 7WST 09-30 14:27 → 7EST 10-05 23:52
PROVIDERS: ADMIT Internal Medicine; ATTEND Internal Medicine
DX: I63.9 Cerebral infarction, unspecified (principal); I50.23 Acute on chronic systolic (congestive) heart failure; N30.00 Acute cystitis without hematuria; G95.89 Other specified diseases of spinal cord; M51.36 Other intervertebral disc degeneration, lumbar region; I67.82 Cerebral ischemia; I11.0 Hypertensive heart disease with heart failure; M47.816 Spondylosis without myelopathy or radiculopathy, lumbar region; R15.9 Full incontinence of feces; K40.20 Bilateral inguinal hernia, without obstruction or gangrene, not specified as recurrent; I70.0 Atherosclerosis of aorta; N32.3 Diverticulum of bladder; Z68.38 Body mass index [BMI] 38.0-38.9, adult; K57.30 Diverticulosis of large intestine without perforation or abscess without bleeding; G47.33 Obstructive sleep apnea (adult) (pediatric); I44.0 Atrioventricular block, first degree; E66.01 Morbid (severe) obesity due to excess calories; I44.7 Left bundle-branch block, unspecified; K59.00 Constipation, unspecified; E87.6 Hypokalemia; M17.11 Unilateral primary osteoarthritis, right knee; M24.28 Disorder of ligament, vertebrae; M25.78 Osteophyte, vertebrae; M48.02 Spinal stenosis, cervical region; E53.8 Deficiency of other specified B group vitamins; N40.0 Benign prostatic hyperplasia without lower urinary tract symptoms; Z79.899 Other long term (current) drug therapy; Z86.73 Personal history of transient ischemic attack (TIA), and cerebral infarction without residual deficits; Z87.891 Personal history of nicotine dependence
CPT/HCPCS: 36415; 70551; 72141; 72146; 72148; 72170; 73562; 73610; 74176; 76770; 80048; 80053; 80061; 81003; 82550; 82553; 82607; 82652; 82962; 83036; 83880; 84439; 84443; 84481; 84484; 85025; 85027; 85379; 87426; 93005; 93306; 93880; 93970; 97162; 97166; 97530; 97535; 99285; C1893; J0696; J1650; J1815; J1940; J3420; J3490; J7060

== ENCOUNTER 2024-09-20 10:47 | Inpatient (IN) | payer MEDICARE, MEDICAID ==
[~2024-09-20] VITALS: Ht 188 cm; Wt 90.3 kg
[~2024-09-20 10:47] MED LIST changes: -AMLO10TA80 PO; +ASPI-1406 PO; +ATOR40TA70 PO; +CLOP-31 PO; +COR3 PO; +IBUP-2030 PO; -LISI-186 PO; +LISI2.5T47 PO
[2024-09-20] MEDS: LEVOFLOXACIN 500MG PREMIX 100 ML IV ONE (11:38)
[2024-09-20 12:11] LABS: BASOPHILS % 0.4 % (0.0-2.0); EOSINOPHILS % 2.7 % (0.0-5.0); HEMATOCRIT. 34.9 % (42.0-52.0); HEMOGLOBIN. 11.3 g/dL (14.0-18.0); LYMPHOCYTES % 16.3 % (20.0-50.0); MEAN CORPUSCULAR HEMOGLOBIN 30.4 pg (28.0-32.0); MEAN CORPUSCULAR HGB CONC 32.3 g/dL (31.0-37.0); MEAN CORPUSCULAR VOLUME 94.2 fL (80.0-94.0); MEAN PLATELET VOLUME 7.6 fl (7.4-10.4); MONOCYTES % 6.8 % (2.0-8.0); NEUTROPHILS % 73.8 % (40.0-76.0); PLATELET 306 x1000/uL (130-400); RED CELL DISTRIBUTION WIDTH 14.7 % (11.6-14.6); WHITE BLOOD COUNT 12.7 x1000/uL (4.5-11.0)
[2024-09-20 12:19] LABS: CARBON DIOXIDE 29 mEq/L (21-32); CHLORIDE 101 mEq/L (98-107); POTASSIUM 3.4 mEq/L (3.5-5.1); SODIUM 136 mEq/L (136-145)
[2024-09-20 12:20] LABS: CALCIUM 9.2 mg/dL (8.7-10.4); PROTHROMBIN TIME 11.4 sec (9.6-11.0)
[2024-09-20 12:25] LABS: GLUCOSE 96 mg/dL (70-105); UREA NITROGEN BLOOD 14 mg/dL (9-23)
[2024-09-20 12:26] LABS: ALANINE AMINOTRANSFERASE 8 IU/L (10-49); ALBUMIN 3.6 g/dL (3.2-4.8); ASPARTATE AMINOTRANSFERASE 18 IU/L (<34)
[2024-09-20 12:27] LABS: BILIRUBIN DIRECT 0.2 mg/dL (<=3.0); BILIRUBIN TOTAL 0.6 mg/dL (0.1-1.0); PROTEIN TOTAL 7.2 g/dL (6.0-8.3)
[2024-09-20] MEDS ORDERED: IPRATROPIUM/ALBUTEROL 0.5-3(2.5)MG/3ML NEB NEB PRN (16:30)
[2024-09-20] MEDS ORDERED: CLONIDINE 0.1MG TABLET PO PRN (16:30)
[2024-09-20] MEDS ORDERED: MEROPENEM 1,000 MG in SODIUM CHLORIDE 0.9% 100 ML IV SCH (16:30)
[2024-09-20] MEDS ORDERED: GUAIFENESIN 200MG/10ML SUGAR FREE UDC PO PRN (16:30)
[2024-09-20] MEDS ORDERED: ZOLPIDEM TARTRATE 5MG TABLET PO PRN (16:30)
[2024-09-20] MEDS ORDERED: MAGNESIUM/ALUMINUM HYDROXIDE/SIMETHICONE 30ML UDC PO PRN (16:30)
[2024-09-20] MEDS ORDERED: DOCUSATE SODIUM 100MG CAPSULE PO PRN (16:30)
[2024-09-20] MEDS ORDERED: NITROGLYCERIN 0.4MG TABLET SL SL PRN (16:30)
[2024-09-20] MEDS ORDERED: ACETAMINOPHEN 325MG TABLET PO PRN ×2 (16:30)
[2024-09-20] MEDS ORDERED: ONDANSETRON HCL 4MG/2ML INJ IV PRN (16:30)
[2024-09-20 17:27] LABS: IRON 36 ug/dL (65-175)
[2024-09-20 17:28] LABS: TRIGLYCERIDE 57 mg/dL (0-150)
[2024-09-20 17:29] LABS: LDL CHOLESTEROL 42 mg/dL (5-100)
[2024-09-20 17:30] LABS: CHOLESTEROL 101 mg/dL (<200); HDL CHOLESTEROL 41 mg/dL (>55); TOTAL IRON BINDING CAPACITY 395 ug/dl (250-425)
[2024-09-20 17:33] LABS: T4 FREE 1.33 ng/dL (0.89-1.76); THYROID STIMULATING HORMONE 1.01 uIU/mL (0.55-4.78)
[2024-09-20 17:42] LABS: FOLIC ACID (FOLATE) SERUM 16.47 ng/mL (>5.38); VITAMIN B12 SERUM 877 pg/mL (211-911)
[2024-09-20 18:32] LABS: CLARITY URINE TURBID (CLEAR); COLOR URINE YELLOW (YELLOW); GLUCOSE URINE NEGATIVE (NEGATIVE); KETONES URINE NEGATIVE (NEGATIVE); LEUKOCYTE ESTERASE URINE 3+ (NEGATIVE); NITRITE URINE POSITIVE (NEGATIVE); OCCULT BLOOD URINE 3+ (NEGATIVE); PROTEIN URINE 3+ (NEGATIVE); SPECIFIC GRAVITY URINE 1.013 (1.005-1.030)
[2024-09-20 18:44] LABS: LACTIC ACID 2.1 mmol/L (0.4-2.0)
[2024-09-20 18:47] LABS: *AMPHETAMINES SCREEN URINE NEGATIVE (NEGATIVE); *BARBITURATES SCREEN URINE NEGATIVE (NEGATIVE); *BENZODIAZEPINES SCREEN URINE NEGATIVE (NEGATIVE); *COCAINE SCREEN URINE NEGATIVE (NEGATIVE)
[2024-09-20 18:48] LABS: CANNABINOID URINE SCREEN NEGATIVE (NEGATIVE); ECSTASY MDMA SCREEN URINE NEGATIVE (NEGATIVE); METHADONE URINE SCREEN NEGATIVE (NEGATIVE); OPIATES URINE SCREEN NEGATIVE (NEGATIVE); PHENCYCLIDINE URINE SCREEN NEGATIVE (NEGATIVE)
[2024-09-20 18:55] LABS: BACTERIA URINE 4+; SQUAMOUS EPITHELIAL CELL URINE 1+ /lpf (RARE/1+); WBC URINE TNTC /hpf (0-2)
[2024-09-20 18:58] VITALS: BP 118/70; PULSE 84; RESP 16; TEMP 36.50292; O2SAT 99
[2024-09-20 19:01] VITALS: BP 118/70; PULSE 84; RESP 14; TEMP 36.50292; O2SAT 99
[2024-09-20 20:00] VITALS: BP_SYST 62; RESP 16; TEMP 38.16972; O2SAT 97
[2024-09-20] MEDS: LACTATED RINGERS IV NR (20:52)
[2024-09-20] MEDS: MEROPENEM 1G/100ML IV SCH (20:53)
[2024-09-20] MEDS: ASCORBIC ACID 500 MG TABLET PO SCH (20:57)
[2024-09-20] MEDS: FAMOTIDINE 20MG TABLET PO SCH (20:57)
[2024-09-20] MEDS: ENOXAPARIN 40MG/0.4ML SYR SUBCUT SCH (20:57)
[2024-09-20 22:41] LABS: CREATINE KINASE MB FRACTION 0.9 ng/mL (0.5-3.6); TROPONIN I HIGH SENSITIVITY 45 ng/L (3.0-53)
[2024-09-20 22:43] LABS: CREATINE KINASE 54 IU/L (46-171)
[2024-09-21] VITALS: BP 117/63; RESP 16; TEMP 36.83628; O2SAT 98
[2024-09-21 04:00] VITALS: BP 116/60; RESP 20; TEMP 37.00296; O2SAT 98
[2024-09-21 08:00] VITALS: BP 92/49; RESP 16; TEMP 36.55848; O2SAT 99
[2024-09-21] MEDS: ZINC SULFATE 220 MG ( 50 ) CAPSULE PO SCH (09:29)
[2024-09-21 11:24] LABS: BASOPHILS % 0.4 % (0.0-2.0); EOSINOPHILS % 2.3 % (0.0-5.0); HEMATOCRIT. 34.3 % (42.0-52.0); HEMOGLOBIN. 11.2 g/dL (14.0-18.0); MEAN CORPUSCULAR HEMOGLOBIN 30.4 pg (28.0-32.0); MEAN CORPUSCULAR HGB CONC 32.7 g/dL (31.0-37.0); NEUTROPHILS % 76.3 % (40.0-76.0); PLATELET 343 x1000/uL (130-400); RED BLOOD CELL COUNT 3.69 mill/uL (4.7-6.1); RED CELL DISTRIBUTION WIDTH 14.8 % (11.6-14.6)
[2024-09-21 11:25] LABS: CARBON DIOXIDE 27 mEq/L (21-32); CHLORIDE 103 mEq/L (98-107); POTASSIUM 2.9 mEq/L (3.5-5.1); SODIUM 137 mEq/L (136-145)
[2024-09-21 11:26] LABS: CALCIUM 9.3 mg/dL (8.7-10.4)
[2024-09-21 11:30] LABS: CREATININE 0.9 mg/dL (0.6-1.3)
[2024-09-21 11:31] LABS: CREATINE KINASE MB FRACTION 0.8 ng/mL (0.5-3.6); GLUCOSE 106 mg/dL (70-105); TROPONIN I HIGH SENSITIVITY 50 ng/L (3.0-53); UREA NITROGEN BLOOD 11 mg/dL (9-23)
[2024-09-21 11:32] LABS: ALANINE AMINOTRANSFERASE 8 IU/L (10-49); ALBUMIN 3.7 g/dL (3.2-4.8); ASPARTATE AMINOTRANSFERASE 17 IU/L (<34)
[2024-09-21 11:33] LABS: BILIRUBIN TOTAL 0.5 mg/dL (0.1-1.0); CREATINE KINASE 59 IU/L (46-171); PHOSPHORUS 2.4 mg/dL (2.5-4.9); PROTEIN TOTAL 7.1 g/dL (6.0-8.3)
[2024-09-21 12:00] VITALS: BP 129/70; RESP 20; TEMP 36.44736; O2SAT 98
[2024-09-21 16:00] VITALS: BP 147/66; RESP 20; TEMP 36.50292; O2SAT 99
[2024-09-21 20:00] VITALS: BP 122/73; RESP 20; TEMP 36.28068; O2SAT 99
[2024-09-21] MEDS: POTASSIUM PHOSPHATE 15 MMOL in DEXT 5% WATER 245 ML IV NR (21:00)
[2024-09-21] MEDS: KCL 10MEQ/50ML PREMIX 50 ML IV SCH (23:45)
[2024-09-22] VITALS (7 sets, daily range): BP systolic 110–139; BP diastolic 53–82; PULSE 72–93; RESP 16–20; TEMP 36.22512–36.9474; O2SAT 95–100
[2024-09-22 07:18] LABS: PHOSPHORUS 2.3 mg/dL (2.5-4.9)
[2024-09-22 07:25] LABS: BASOPHILS % 0.2 % (0.0-2.0); EOSINOPHILS % 0.3 % (0.0-5.0); HEMATOCRIT. 32.3 % (42.0-52.0); HEMOGLOBIN. 10.5 g/dL (14.0-18.0); LYMPHOCYTES % 8.8 % (20.0-50.0); MEAN CORPUSCULAR HEMOGLOBIN 30.1 pg (28.0-32.0); MEAN CORPUSCULAR HGB CONC 32.6 g/dL (31.0-37.0); MEAN CORPUSCULAR VOLUME 92.3 fL (80.0-94.0); MEAN PLATELET VOLUME 7.9 fl (7.4-10.4); MONOCYTES % 3.5 % (2.0-8.0); NEUTROPHILS % 87.2 % (40.0-76.0); PLATELET 334 x1000/uL (130-400); RED CELL DISTRIBUTION WIDTH 14.6 % (11.6-14.6)
[2024-09-22] MEDS: POTASSIUM CHLORIDE 20MEQ TABLET SR PO SCH (09:00)
[2024-09-23] VITALS: BP 112/33; PULSE 69; RESP 17; TEMP 36.114; O2SAT 91
[2024-09-23 04:00] VITALS: BP 126/75; PULSE 71; RESP 18; TEMP 36.50292; O2SAT 93
[2024-09-23 08:29] VITALS: BP 116/52; PULSE 68; RESP 18; TEMP 36.55848; O2SAT 95
[2024-09-23] MEDS: KETOROLAC 15MG/ML VIAL IV PRN (09:54)
[2024-09-23 11:58] VITALS: BP 116/52; PULSE 98; TEMP 97.8; O2SAT 95
[2024-09-23 12:21] VITALS: BP 120/82; PULSE 98; RESP 18; TEMP 36.55848; O2SAT 96
== END 2024-09-23 12:33 | DRG 871 ==
LOC: ER 10:47 → 5WST 13:22 → EDBEDREQ 13:26 → 8WST 09-22 11:21
PROVIDERS: ADMIT Internal Medicine; ATTEND Internal Medicine
DX: A41.51 Sepsis due to Escherichia coli [E. coli] (principal); G92.8 Other toxic encephalopathy; N39.0 Urinary tract infection, site not specified; R65.20 Severe sepsis without septic shock; R62.7 Adult failure to thrive; E78.00 Pure hypercholesterolemia, unspecified; I50.9 Heart failure, unspecified; E87.6 Hypokalemia; I11.0 Hypertensive heart disease with heart failure; I25.2 Old myocardial infarction; Z79.899 Other long term (current) drug therapy; Z68.25 Body mass index [BMI] 25.0-25.9, adult
CPT/HCPCS: 36415; 80048; 80053; 80061; 80076; 80305; 81003; 82550; 82553; 82607; 82746; 83036; 83540; 83550; 83605; 83735; 84100; 84439; 84443; 84484; 85025; 85379; 87077; 87186; 93005; 93970; 99285; C1893; J1650; J1885; J1956; J2185; J3480; J3490; J7060